=== PATIENT | female | born 1965 | race Caucasian/White ===

== ENCOUNTER 2019-06-09 20:09 | Emergency (ER) | payer MEDICAID ==
[2019-06-09 20:41] VITALS: BP 120/72
--- NOTE | 2019-06-09 20:45 | EDM.PDOC ---
ED HPI GENERAL MEDICAL PROBLEM - General Chief Complaint: ENT Problem Stated Complaint: BLEEDING IN THE R EAR Time Seen by Provider: 06/09/19 20:37 Source of Information: Reports: Patient - History of Present Illness INITIAL COMMENTS - FREE TEXT/NARRATIVE: Dalila is a 54 y/o female who comes to the ER with complaints of bleeding from her right ear. She reports that she just noticed this in the last coupe hours when when was wearing some headphone. Denies any trauma to her ear. She reports a recent history of Rhinoplasty on Jun 03 with packing removed Jun 07. She is not supposed to blow her nose for 3 weeks and she has been complying. She is also supposed to be rinsing her nose with saline three times day. Both of her ears hurts and she feels "all stuffed up". No fevers. Right Headache Pain Score (Numeric/FACES): 6 - Related Data Allergies Allergy/AdvReac Type Severity Reaction Status Date / Time cephalexin [Cephalexin] Allergy Airway Verified 06/09/19 20:25 Tightness Sulfa (Sulfonamide Allergy Hives Verified 06/09/19 20:25 Antibiotics) Home Meds: Home Meds . [No Known Home Meds] 11/15/18 [History] Past Medical History - Past Health History Medical/Surgical History: Denies Medical/Surgical History Genitourinary History: Reports: Renal Calculus - Past Surgical History HEENT Surgical History: Reports: Oral Surgery GI Surgical History: Reports: Cholecystectomy Female Surgical History: Reports: Section, Hysterectomy ED ROS ENT - Review of Systems Review Of Systems: See Below Constitutional: Denies: Fever, Chills, Malaise HEENT: Reports: Ear Discharge, Ear Pain, Nose Pain, Other (congestion) Respiratory: Reports: No Symptoms Cardiovascular: Reports: No Symptoms Endocrine: Reports: No Symptoms GI/Abdominal: Reports: No Symptoms : Reports: No Symptoms Musculoskeletal: Reports: No Symptoms Skin: Reports: No Symptoms Neurological: Reports: No Symptoms Psychiatric: Reports: No Symptoms Hematologic/Lymphatic: Reports: No Symptoms Immunologic: Reports: No Symptoms ED EXAM, ENT - Physical Exam Exam: See Below Exam Limited By: No Limitations General Appearance: Alert, WD/WN, No Apparent Distress Eye Exam: Bilateral Eye: Other Ears: Normal External Exam, Hearing Grossly Normal, TM Fluid (bilateral). No: Normal Canal (note small bleeding to right external ear canal, Right TM WNL), TM Bulging, TM Dullness Nose: Normal Inspection, Clear Rhinorrhea Mouth/Throat: Normal Inspection, Normal Gums, Normal Teeth Head: Atraumatic Neck: Supple Respiratory/Chest: No Respiratory Distress, Lungs Clear Cardiovascular: Regular Rate, Rhythm GI/Abdominal: Normal Bowel Sounds (Female) Exam: Deferred Rectal (Female) Exam: Deferred Extremities: Normal Inspection Neurological: Alert, Oriented, CN II-XII Intact Psychiatric: Normal Affect Skin: Warm, Dry, Intact Lymphatic: No Adenopathy Course - Vital Signs Text/Narrative:: The patient was seen by the ELECTROMATIC TYPIST. No labs or xrays were indicated. No medications or treatments were done. She was given instructions for discharge and sent home in stable condition. Last Recorded V/S: Last Vital Signs Temp 37.0 C 06/09/19 20:10 Pulse 91 06/09/19 20:10 Resp 16 06/09/19 20:10 BP 120/72 06/09/19 20:10 Pulse Ox 97 06/09/19 20:10 Departure - Departure Time of Disposition: 20:42 Disposition: Home, Self-Care 01 Condition: Good Clinical Impression: Right ear injury - Discharge Information *PRESCRIPTION DRUG MONITORING PROGRAM REVIEWED*: Not Applicable *COPY OF PRESCRIPTION DRUG MONITORING REPORT IN PATIENT JONA: Not Applicable Referrals: PCP,Unknown [Primary Care Provider] - Forms: ED Summary Discharge, ED Department Discharge Additional Instructions: -May use cotton ball in ear to collect minor bleeding -Use warm packs to ears as needed for pain -Continue the ENT post op instructions -Return to the ER as needed -Use meds as instructed by ENT MLP Sign Off - Signature Requirements MLP Sign Off: No - Problem List & Annotations (1) Right ear injury SNOMED Code(s): 3150475 Code(s): S09.91XA - UNSPECIFIED INJURY OF EAR, INITIAL ENCOUNTER Status: Acute Current Visit: Yes
== END 2019-06-09 21:15 | disposition home or self-care (01) ==
LOC: VM.ED 20:09
DX: S09.91XA Unspecified injury of ear, initial encounter (principal); H92.21 Otorrhagia, right ear; Z88.2 Allergy status to sulfonamides; Z88.1 Allergy status to other antibiotic agents; Z87.442 Personal history of urinary calculi; X58.XXXA Exposure to other specified factors, initial encounter
CPT/HCPCS: 99282